=== PATIENT | female | born 2000 | race Caucasian/White ===

== ENCOUNTER 2022-01-20 16:36 | Emergency (ER) | payer MEDICAID ==
[2022-01-20 17:07] LABS: MUDS CUTOFF CONCENTRATIONS CUTOFF CONC BELOW:
[2022-01-20 17:14] LABS: BILIRUBIN,URINE NEGATIVE (NEGATIVE); GLUCOSE, URINE (UA) NEGATIVE (NEGATIVE); KETONES,URINE (UA) NEGATIVE (NEGATIVE); LEUKOCYTE ESTERASE, URINE NEGATIVE (NEGATIVE); NITRITE,URINE NEGATIVE (NEGATIVE); OCCULT BLOOD,URINE MODERATE (NEGATIVE); PROTEIN,URINE NEGATIVE (NEGATIVE); UROBILINOGEN,URINE 0.2 (NORMAL) E.U./dL (NORMAL)
[2022-01-20 17:20] LABS: BASOPHILS % (AUTO) 0.4 %; EOSINOPHILS # (AUTO) 0.1 10^3/uL (0.0-0.7); EOSINOPHILS % (AUTO) 1.1 %; HGB - HEMOGLOBIN 13.5 g/dL (12.0-16.0); LYMPHOCYTES # (AUTO) 3.3 10^3/uL (1.5-3.5); LYMPHOCYTES % (AUTO) 44.1 %; MEAN CORPUSCULAR HEMOGLOBIN 29.3 pg (27.0-31.0); MEAN CORPUSCULAR HGB CONC 33.8 g/dL (32.0-36.0); MEAN CORPUSCULAR VOLUME 86.8 fL (81.0-99.0); MEAN PLATELET VOLUME 11.8 fL (7.9-10.8); MONOCYTES # (AUTO) 0.8 10^3/uL (0.0-1.0); MONOCYTES % (AUTO) 10.5 %; NEUTROPHILS # (AUTO) 3.3 10^3/uL (1.5-6.6); NEUTROPHILS % (AUTO) 43.8 %; PLT - PLATELET COUNT 286 10^3/uL (130-450); RED BLOOD COUNT 4.61 10^6/uL (4.20-5.40); RED CELL DISTRIBUTION WIDTH 12.4 % (12.0-15.0); WHITE BLOOD COUNT 7.5 x10^3/uL (4.8-10.8)
[2022-01-20 17:20] LABS: CLARITY,URINE CLEAR (CLEAR); HCG UR QUAL NEGATIVE
[2022-01-20 17:26] LABS: AMPHETAMINE SCREEN,URINE NEGATIVE (NEGATIVE); BACTERIA,URINE Rare /HPF (None Seen); BARBITURATE SCREEN,UR NEGATIVE (NEGATIVE); BENZODIAZEPINES SCREEN, URINE NEGATIVE (NEGATIVE); COCAINE SCREEN URINE NEGATIVE (NEGATIVE); METHADONE SCREEN, URINE NEGATIVE (NEGATIVE); METHAMPHETAMINES SCREEN, URINE NEGATIVE (NEGATIVE); OPIATE SCREEN, URINE NEGATIVE (NEGATIVE); OXYCODONE SCREEN, URINE NEGATIVE (NEGATIVE); PROPOXYPHENE SCREEN, URINE NEGATIVE (NEGATIVE); RBC,URINE 0-5 /HPF (0-5); SQUAMOUS EPITHELIAL CELL,UR FEW Squamous (<= Few); THC CANNABINOID SCREEN, URINE NEGATIVE (NEGATIVE); TRICYCLIC ANTIDEPRESSANT,URINE NEGATIVE (NEGATIVE); WBC,URINE 0-3 /HPF (0-5)
[2022-01-20 17:30] LABS: ALBUMIN 4.5 g/dL (3.2-5.5); ALBUMIN/GLOBULIN RATIO 1.3 (1.0-2.2); BILIRUBIN,TOTAL 0.6 mg/dL (0.2-1.0); CALCIUM 10.1 mg/dL (8.5-10.3); CREATININE 0.6 mg/dL (0.4-1.0); POTASSIUM 3.7 mmol/L (3.5-5.0)
[2022-01-20] MEDS ORDERED: SODIUM CHLORIDE 0.9% 1,000 ML IV STA (18:47)
--- NOTE | 2022-01-20 18:49 | ED Physician Documentation ---
History of Present Illness - Stated complaint Stated Complaint: ABD PX,NAUSEA - Chief complaint Chief Complaint: Abd Pain - History obtained from History obtained from: Patient - History of Present Illness Timing: How many days ago (4-5) Pain level max: 3 Pain level now: 1 - Additonal information Additional information: Patient is a 21-year-old female who presents to the emergency department stating that for the past 4 to 5 days she has had intermittent abdominal pain. Mainly epigastric. Nothing seems to make it better. She states worse with eating and drinking. Does have a history of IBS. She states she used to be on Hyoscyamine for this. She states that she feels lightheaded when she stands up, like she is going to pass out. She has been on a crash diet for the past 2 months. Eating less than 600 samson/day. Review of Systems Ten Systems: 10 systems reviewed and negative Constitutional: denies: Fever, Chills Nose: denies: Rhinorrhea / runny nose, Congestion Respiratory: denies: Cough GI: denies: Vomiting, Diarrhea Skin: denies: Rash Musculoskeletal: denies: Neck pain, Back pain Neurologic: denies: Headache PD PAST MEDICAL HISTORY - Past Medical History Past Medical History: Yes Cardiovascular: None Respiratory: None Neuro: None Endocrine/Autoimmune: None GI: Other MUD MIXER: None : None HEENT: None Psych: None Musculoskeletal: None Derm: None Other Past Medical History: IBS. "non- alcoholic fatty liver disease" - Past Surgical History Past Surgical History: No - Present Medications Home Medications: Ambulatory Orders Medication Instructions Recorded Confirmed No Known Home Medications 01/20/22 01/20/22 - Allergies Allergies/Adverse Reactions: Allergies Allergy/AdvReac Type Severity Reaction Status Date / Time hydrocodone Allergy Anaphylaxis Verified 01/20/22 16:47 ibuprofen AdvReac Unknown Verified 01/20/22 16:47 - Social History Does the pt smoke?: No Smoking Status: Never smoker - Immunizations Immunizations are current?: Yes PD ED PE NORMAL - Vitals Vital signs reviewed: Yes - General General: Alert and oriented X 3, No acute distress, Well developed/nourished - HEENT HEENT: PERRL, Other (dry lips) - Neck Neck: Supple, no meningeal sign - Cardiac Cardiac: RRR, Strong equal pulses - Respiratory Respiratory: No respiratory distress, Clear bilaterally - Abdomen Abdomen: Soft, Non tender, Non distended - Derm Derm: Warm and dry, No rash - Extremities Extremities: No edema, No calf tenderness / cord - Neuro Neuro: Alert and oriented X 3 Results - Vitals Vitals: Vital Signs - 24 hr 01/20/22 01/20/22 01/20/22 16:43 18:38 19:25 Temperature 36.6 C 36.9 C 36.8 C Heart Rate 69 46 L 67 Respiratory 17 16 16 Rate Blood Pressure 128/77 108/79 117/76 O2 Saturation 99 100 100 Oxygen O2 Source Room air - Labs Labs: Laboratory Tests 01/20/22 01/20/22 01/20/22 17:05 17:10 17:10 WBC 7.5 RBC 4.61 Hgb 13.5 Hct 40.0 MCV 86.8 MCH 29.3 MCHC 33.8 RDW 12.4 Plt Count 286 MPV 11.8 H Neut # (Auto) 3.3 Lymph # (Auto) 3.3 [place] # (Auto) 0.8 Eos # (Auto) 0.1 Baso # (Auto) 0.0 Absolute Nucleated RBC 0.00 Nucleated RBC % 0.0 Sodium 139 Potassium 3.7 Chloride 103 Carbon Dioxide 24 Anion Gap 12.0 BUN 9 Creatinine 0.6 Estimated GFR (MDRD) 129 Glucose 73 Calcium 10.1 Total Bilirubin 0.6 AST 41 ALT 57 Alkaline Phosphatase 36 L Total Protein 8.0 Albumin 4.5 Globulin 3.5 Albumin/Globulin Ratio 1.3 Lipase 35 Urine Color YELLOW Urine Clarity CLEAR Urine pH 6.0 Ur Specific [place] <=1.005 Urine Protein NEGATIVE Urine Glucose (UA) NEGATIVE Urine Ketones NEGATIVE Urine Occult Blood MODERATE H Urine Nitrite NEGATIVE Urine Bilirubin NEGATIVE Urine Urobilinogen 0.2 (NORMAL) Ur Leukocyte Esterase NEGATIVE Urine RBC 0-5 Urine WBC 0-3 Ur Squamous Epith Cells FEW Squamous Urine Bacteria Rare Ur Microscopic Review INDICATED Urine Culture Comments NOT INDICATED Urine HCG, Qual NEGATIVE Urine Opiates Screen NEGATIVE Ur Oxycodone Screen NEGATIVE Urine Methadone Screen NEGATIVE Ur Propoxyphene Screen NEGATIVE Ur Barbiturates Screen NEGATIVE Ur Tricyclics Screen NEGATIVE Ur Phencyclidine Scrn NEGATIVE Ur Amphetamine Screen NEGATIVE U Methamphetamines Scrn NEGATIVE U Benzodiazepines Scrn NEGATIVE Urine Cocaine Screen NEGATIVE U Cannabinoids Screen NEGATIVE PD MEDICAL DECISION MAKING - ED course Complexity details: reviewed results, re-evaluated patient, considered differential, d/w patient ED course: No significant lab abnormalities. Feels better after IV fluids. Likely that she is having some abdominal pain from her IBS as well. Recommend that she follow-up closely with a primary care provider for further care. Also recommend she increase her caloric intake to at least 1200 samson/day. Recommend that she follow with a internal sales for her weight loss goals. Patient counseled regarding signs and symptoms for which I believe and urgent re-evaluation would be necessary. Patient with good understanding of and agreement to plan and is comfortable going home at this time This document was made in part using voice recognition software. While efforts are made to proofread this document, sound alike and grammatical errors may occur. Departure - Departure Disposition: 01 Home, Self Care Clinical Impression: Dehydration Condition: Good Instructions: ED Dehydration Follow-Up: Your,doctor in 1 week [Other] Primary/Walk In [place] [Provider Group] Walk In [facility] [Provider Group] Comments: Please make sure you are eating at least 1200 samson/day. You should also have refeeding periods during your weight loss. Make sure you are drinking plenty of water and vitamins as well as electrolytes too. Return if you worsen. Your blood work does not show any acute abnormalities today Discharge Date/Time: 01/20/22 19:48
[2022-01-20 19:29] VITALS: BP 117/76
== END 2022-01-20 19:48 | disposition home or self-care (01) ==
LOC: ED 16:36
DX: E86.0 Dehydration (principal)
CPT/HCPCS: 36415; 80053; 80306; 81001; 81003; 81025; 83690; 85025; 87086; 99282; 99283

== ENCOUNTER 2022-08-24 17:48 | Emergency (ER) | payer MEDICAID ==
[2022-08-24 18:09] VITALS: BP 119/64
[2022-08-24] MEDS ORDERED: ONDANSETRON ODT 4 MG TABLET TL STA (18:11)
--- NOTE | 2022-08-24 18:11 | ED Physician Documentation ---
PD HPI HEENT - Stated complaint Stated Complaint: SORE THROAT,NAUSEA - Chief complaint Chief Complaint: Heent - History obtained from History obtained from: Patient - Additional information Additional information: This is an otherwise healthy 21-year-old who is been sick for about 3 days with mild sore throat, runny nose, chills, and nausea without vomiting. There is no fever. She is been exposed to her brothers who are sick with similar illness, they tested negative for COVID. She has not tested for COVID. She needs something for the nausea. No chance of . 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 : None HEENT: None Psych: None Musculoskeletal: None Derm: None - Past Surgical History Past Surgical History: No - Present Medications Home Medications: Ambulatory Orders Medication Instructions Recorded Confirmed Ondansetron Odt [Zofran] 4 mg TL Q6H PRN #10 tablet 08/24/22 - Allergies Allergies/Adverse Reactions: Allergies Allergy/AdvReac Type Severity Reaction Status Date / Time hydrocodone Allergy Anaphylaxis Verified 08/24/22 17:57 ibuprofen AdvReac Unknown Verified 08/24/22 17:57 - Social History Does the pt smoke?: No Smoking Status: Never smoker - Immunizations Immunizations are current?: Yes PD ED PE NORMAL - Vitals Vital signs reviewed: Yes - General General: Alert and oriented X 3, No acute distress - HEENT HEENT: Other (Mildly red tonsillar pillars, no tonsillar swelling or exudates, no cervical adenopathy.) - Neck Neck: Supple, no meningeal sign, No bony TTP - Cardiac Cardiac: RRR, No murmur - Respiratory Respiratory: No respiratory distress, Clear bilaterally - Abdomen Abdomen: Non tender - Neuro Neuro: Alert and oriented X 3, Normal speech - Psych Psych: Normal mood, Normal affect Results - Vitals Vitals: Vital Signs - 24 hr 08/24/22 17:54 Temperature 37.2 C Heart Rate 65 Respiratory 16 Rate Blood Pressure 119/64 O2 Saturation 99 Oxygen O2 Source Room air PD Medical Decision Making - ED course ED course: 21-year-old with viral URI. Will check for COVID. Otherwise she needs symptomatic relief from her nausea. Departure - Departure Disposition: 01 Home, Self Care Clinical Impression: Viral URI Condition: Good Record reviewed to determine appropriate education?: Yes Instructions: ED Viral Syndrome Prescriptions: Ondansetron Odt [Zofran] 4 mg TL Q6H PRN #10 tablet PRN Reason: Nausea / Vomiting Comments: You have a Covid test pending. You need to self quarantine until the result is done and negative. Do not leave your house. Do not get near anybody. The results should be done in 48 to 72 hours. We will call with a positive result, the fastest way to get a negative result for confirmation though is to go to the hospital website at [email or web address], click on the my [email or web address] tab and sign up for the patient portal. Forms: Activity restrictions
== END 2022-08-24 18:17 | disposition home or self-care (01) ==
LOC: ED 17:48
DX: J06.9 Acute upper respiratory infection, unspecified (principal); Z20.822 Contact with and (suspected) exposure to COVID-19
CPT/HCPCS: 87635; 99283; Q0162

== ENCOUNTER 2022-10-03 19:22 | Emergency (ER) | payer MEDICAID ==
[2022-10-03] MEDS ORDERED: ONDANSETRON 4 MG/2 ML VIAL IVP STA (19:36)
[2022-10-03] MEDS ORDERED: KETOROLAC 30 MG/ML VIAL IVP STA (19:36)
[2022-10-03] MEDS ORDERED: SODIUM CHLORIDE 0.9% 1,000 ML IV STA (19:37)
--- NOTE | 2022-10-03 19:39 | ED Physician Documentation ---
PD HPI ABD PAIN - Stated complaint Stated Complaint: ABD PAIN - Chief complaint Chief Complaint: Abd Pain - History obtained from History obtained from: Patient - Additional information Additional information: Pt is a 22yo F presenting with 2 days of LLQ and L flank pain with dysuria. Denies h/o kidney stones. Denies fever, vaginal bleeding, discharge or concerns for Or sexually transmitted infection. Nothing makes the pain better. Pain is sharp. Review of Systems Constitutional: denies: Fever Cardiac: denies: Chest pain / pressure Respiratory: denies: Dyspnea GI: reports: Abdominal Pain, Nausea, Vomiting : reports: Dysuria Neurologic: denies: Headache PD PAST MEDICAL HISTORY - Past Medical History Cardiovascular: None Respiratory: None Neuro: None Endocrine/Autoimmune: None GI: Other CHEMICAL MAKER: None : None HEENT: None Psych: None Musculoskeletal: None Derm: None - Past Surgical History Past Surgical History: No - Present Medications Home Medications: Ambulatory Orders Medication Instructions Recorded Confirmed Ondansetron Odt [Zofran] 4 mg TL Q6H PRN #10 tablet 08/24/22 Oxycodone HCl/Acetaminophen 1 each PO Q6H PRN #14 tablet 10/03/22 [Percocet 5-325 mg Tablet] cephALEXin [Keflex] 500 mg PO BID #14 cap 10/03/22 - Allergies Allergies/Adverse Reactions: Allergies Allergy/AdvReac Type Severity Reaction Status Date / Time hydrocodone Allergy Anaphylaxis Verified 10/03/22 19:26 ibuprofen AdvReac Unknown Verified 10/03/22 19:26 - Social History Does the pt smoke?: No Smoking Status: Never smoker - Immunizations Immunizations are current?: Yes PD ED PE NORMAL - General General: Alert and oriented X 3, No acute distress, Well developed/nourished - HEENT HEENT: Atraumatic - Neck Neck: Supple, no meningeal sign - Cardiac Cardiac: RRR, No murmur - Respiratory Respiratory: No respiratory distress, Clear bilaterally - Abdomen Abdomen: Normal bowel sounds, Soft, Non distended, Other (L sided abdominal TTP; no mass; no hernia) - Female Female : Mobile Therapist present (Matt, tech), Other (Normal external exam, moderate amount of white vaginal discharge, normal-appearing cervix, no CMT or significant adnexal tenderness) - Derm Derm: Warm and dry - Neuro Neuro: Normal speech Results - Vitals Vitals: Vital Signs - 24 hr 10/03/22 10/03/22 10/03/22 19:26 20:12 20:15 Temperature 36.5 C Heart Rate 75 68 66 Respiratory 18 14 16 Rate Blood Pressure 134/84 H 121/76 121/76 O2 Saturation 100 100 100 10/03/22 10/03/22 20:39 23:01 Temperature 37.1 C Heart Rate 57 L 67 Respiratory 16 20 Rate Blood Pressure 112/76 119/79 O2 Saturation 100 100 Oxygen O2 Source Room air - Labs Labs: Laboratory Tests 10/03/22 10/03/22 10/03/22 19:38 19:38 19:58 WBC 8.0 RBC 4.35 Hgb 12.8 Hct 38.7 MCV 89.0 MCH 29.4 MCHC 33.1 RDW 11.8 L Plt Count 264 MPV 11.1 H Neut # (Auto) 3.9 Lymph # (Auto) 3.2 [place] # (Auto) 0.8 Eos # (Auto) 0.1 Baso # (Auto) 0.0 Absolute Nucleated RBC 0.00 Nucleated RBC % 0.0 Sodium 139 Potassium 3.8 Chloride 104 Carbon Dioxide 30 Anion Gap 5.0 L BUN 13 Creatinine 0.4 Estimated GFR (MDRD) 203 Glucose 85 Calcium 9.2 Total Bilirubin 0.4 AST 19 ALT 16 Alkaline Phosphatase 33 L Total Protein 7.5 Albumin 4.1 Globulin 3.4 Albumin/Globulin Ratio 1.2 Lipase 35 Urine Color YELLOW Urine Clarity CLEAR Urine pH 7.5 Ur Specific [place] 1.020 Urine Protein NEGATIVE Urine Glucose (UA) NEGATIVE Urine Ketones NEGATIVE Urine Occult Blood MODERATE H Urine Nitrite NEGATIVE Urine Bilirubin NEGATIVE Urine Urobilinogen 0.2 (NORMAL) Ur Leukocyte Esterase TRACE H Urine RBC 11-25 H Urine WBC 4-5 Ur Squamous Epith Cells FEW Squamous Urine Bacteria Few Ur Microscopic Review INDICATED Urine Culture Comments INDICATED Urine HCG, Qual NEGATIVE PD Medical Decision Making - ED course Complexity details: reviewed results, re-evaluated patient, d/w patient, d/w family ED course: Patient is presenting for evaluation of dysuria along with left-sided abdominal pain. She does have mild tenderness noted on exam. Her vital signs appear stable. Labs reviewed including CBC, chemistry, urinalysis. Urine is concerning for infection. She is not . CT scan of the abdomen pelvis was obtained which I reviewed and is negative for a stone but does have the presence of a left-sided hemorrhagic ovarian cyst. A pelvic exam was also per formed. Patient does not have significant adnexal tenderness. No fullness noted. Exam does not suggest ovarian torsion. Ultrasound of the pelvis was obtained which is negative for ovarian torsion. She does have white vaginal discharge on exam which was sent for testing and is pending.She denies concerns for STI and there are no signs of a TOA on U/S. She did receive IV morphine for her pain here with improvement in her symptoms.She additionally was started on antibiotics for a UTI.Patient was counseled on treatment plan with pain medication and antibiotics for her UTI. She is not able to take NSAIDs And had not received improvement with using Tylenol at home so short course of narcotic pain medication was prescribed to her.Patient is counseled on need for close follow-up with PCP or gynecology.She is advised on concerning symptoms to return for. Departure - Departure Disposition: 01 Home, Self Care Clinical Impression: Cyst of ovary, UTI (urinary tract infection) Condition: Stable Instructions: ED Cyst Ovarian, ED UTI Cystitis Female Prescriptions: cephALEXin [Keflex] 500 mg PO BID #14 cap Oxycodone HCl/Acetaminophen [Percocet 5-325 mg Tablet] 1 each PO Q6H PRN #14 tablet PRN Reason: pain Comments: Your testing today shows that you have a urinary tract infection. You also have a cyst on your left ovary which is likely the cause of your pain.I am starting you on an antibiotic for your urine infection and will also prescribe a short amount of narcotic pain medication to help you with the pain regarding the cyst. I would recommend close follow-up with a PCP or residential designer Regarding your cyst. If your pain worsens in any way please return to the emergency department. I have also sent swabs from your vaginal discharge. If there are abnormal findings we will notify you. Your prescriptions were sent to [facility] in [place]. I am prescribing a short course of narcotic pain medication for you. These are potentially dangerous and addictive medications that should be used carefully. These medications may constipate you. Take an [id number] stool softener (docusate) twice daily with plenty of water while taking these medications. If you go 24 hours without a bowel movement, take [id number] miralax, per package instructions. Do not drink or drive while taking these medications. If you received narcotic or sedating medications while in the emergency department, do not drive for 24 hours. Store this medication in a safe, secure place and out of reach of children. It is a violation of federal law to give or sell this medication to another person or to use in a manner other than prescribed. The ED will not refill narcotic prescriptions, including prescriptions lost or stolen. To dispose of unwanted medications: 1. [facility] [address] [facility] in [place] has a medication drop box. They accept prescription medications (in pill form) Friday through Friday 9:00 a.m. to 5:00 p.m. 2. The [facility] [employer] accepts prescription medications (in pill form only) for disposal year round. Call for more information. 3. Contact the [facility] for the next [facility] sponsored prescription drug collection event. , [phone], or [phone]; Note that many narcotic pain relievers also contain Tylenol/acetaminophen. Please ensure that your total dose of acetaminophen from all sources does not exceed 3 g (3000 mg) per day. Return to the ER with any worsening symptoms. Discharge Date/Time: 10/03/22 23:06
--- OUTSIDE RECORDS SUMMARY | 2022-10-03 19:45 | EXTERNAL MEDICAL SUMMARY RPT | Continuity of Care Document ---
:2000 Author Organization [facility] Address [address] [place] [address] Phone Care Team Providers Name Role Phone Unavailable Unavailable Unavailable Tito Bonilla Pa-C Unavailable Unavailable Allergies and Intolerances date description facility type (no date) IBUPROFEN All (unknown) (no date) HYDROCODONE-ACETAMINOPHEN All (unk nown) Encounters No information. Functional Status No information. Immunizations No information. Medications date description facility 2022-09-23 00:00 No Known Medications All Problems date description facility 2022-09-23 00:00 Acute upper respiratory infections of u nspecified site All 2022-09-23 00:00 Upper respiratory infection All 2022-09-23 00:00 Acute upper respiratory infection, unsp ecified All Procedures date description facility 2022-09-23 00:00 Visit Code Hold All Results/Labs No information. Social History date description facility 2022-09-24 00:00 Unknown if ever smoked All Vital Signs date measurement value units 2022-09-23 00:00 BMI 25.84 kg/m2 2022-09-23 00:00 BP_diastolic 78 mmHg 2022-09-23 00:00 BP_systolic 120 mmHg 2022-09-23 00:00 heart_rate 55 /min 2022-09-23 00:00 height_metric 162.56 cm 2022-09-23 00:00 height_standard 64 in 2022-09-23 00:00 respiration_rate 16 /min 2022-09-23 00:00 temperature_metric 36.78 C 2022-09-23 00:00 temperature_standard 98.2 F 2022-09-23 00:00 weight_metric 68.04 kg 2022-09-23 00:00 weight_standard 150 lb
[2022-10-03] MEDS ORDERED: MORPHINE 2 MG/ML CARPUJECT IVP STA ×2 (20:00→21:48)
[2022-10-03 20:08] LABS: BASOPHILS % (AUTO) 0.4 %; EOSINOPHILS # (AUTO) 0.1 10^3/uL (0.0-0.7); EOSINOPHILS % (AUTO) 1.2 %; HCT - HEMATOCRIT 38.7 % (37.0-47.0); HGB - HEMOGLOBIN 12.8 g/dL (12.0-16.0); LYMPHOCYTES # (AUTO) 3.2 10^3/uL (1.5-3.5); LYMPHOCYTES % (AUTO) 39.6 %; MEAN CORPUSCULAR HEMOGLOBIN 29.4 pg (27.0-31.0); MEAN CORPUSCULAR HGB CONC 33.1 g/dL (32.0-36.0); MEAN PLATELET VOLUME 11.1 fL (7.9-10.8); MONOCYTES # (AUTO) 0.8 10^3/uL (0.0-1.0); MONOCYTES % (AUTO) 10.5 %; NEUTROPHILS # (AUTO) 3.9 10^3/uL (1.5-6.6); NEUTROPHILS % (AUTO) 48.2 %; PLT - PLATELET COUNT 264 10^3/uL (130-450); RED BLOOD COUNT 4.35 10^6/uL (4.20-5.40); RED CELL DISTRIBUTION WIDTH 11.8 % (12.0-15.0)
[2022-10-03 20:19] LABS: BILIRUBIN,URINE NEGATIVE (NEGATIVE); GLUCOSE, URINE (UA) NEGATIVE (NEGATIVE); KETONES,URINE (UA) NEGATIVE (NEGATIVE); LEUKOCYTE ESTERASE, URINE TRACE (NEGATIVE); NITRITE,URINE NEGATIVE (NEGATIVE); OCCULT BLOOD,URINE MODERATE (NEGATIVE); PH,URINE 7.5 PH (5.0-7.5); PROTEIN,URINE NEGATIVE (NEGATIVE); UROBILINOGEN,URINE 0.2 (NORMAL) E.U./dL (NORMAL)
[2022-10-03 20:20] LABS: ALBUMIN 4.1 g/dL (3.2-5.5); ALBUMIN/GLOBULIN RATIO 1.2 (1.0-2.2); BILIRUBIN,TOTAL 0.4 mg/dL (0.2-1.0); CALCIUM 9.2 mg/dL (8.5-10.3); CREATININE 0.4 mg/dL (0.4-1.0); POTASSIUM 3.8 mmol/L (3.5-5.0); TOTAL PROTEIN 7.5 g/dL (6.7-8.2)
[2022-10-03 20:22] LABS: CLARITY,URINE CLEAR (CLEAR); HCG UR QUAL NEGATIVE
[2022-10-03 20:27] LABS: BACTERIA,URINE Few /HPF (None Seen); SQUAMOUS EPITHELIAL CELL,UR FEW Squamous (<= Few)
--- NOTE | 2022-10-03 21:41 | CT Report ---
PROCEDURE: ABDOMEN/PELVIS WO INDICATIONS: L flank/LLQ pain TECHNIQUE: Noncontrast 5 mm thick sections acquired from the diaphragms to the symphysis. 5 mm coronal and sagi ttal reformats were then performed. For radiation dose reduction, the following was used: automated exposure control, adjustment of mA and/or kV according to patient size. COMPARISON: None. FINDINGS: Image quality: Excellent. Lung bases: Unremarkable. Heart: Heart is normal in size. ABDOMEN: Liver: No mass lesion. Gallbladder: Within normal limits without calcified gallstones. Biliary ducts: No biliary ductal dilatation. Pancreas: Unremarkable. Spleen: Normal in size. Adrenal Glands: No adrenal nodules. Kidneys and Ureters: No hydronephrosis. No renal stones. Stomach and Bowel: Stomach, small bowel loops, and colon are normal in caliber and wall thickness. A ppendix is normal. There are a few colonic diverticula without acute diverticulitis. Peritoneum:A small amount of pelvic free fluid appears within physiologic limits. No free air. Ventral Wall: No hernia. Abdominal Nodes: No retroperitoneal or mesenteric adenopathy by size criteria. Vessels: Aorta and inferior vena cava are normal in size. PELVIS: Pelvic Organs:There is a left adnexal cyst measuring up to 6.1 cm with curvilinear internal areas of hyperdensity suggestive of blood product. The findings are suggestive of a hemorrhagic cyst. Bladder: Unremarkable. Pelvic Nodes: No enlarged lymph nodes. Miscellaneous: No inguinal hernias. Bones: Visualized osseous structures demonstrate no suspicious lesions. IMPRESSION: 1. No nephrolithiasis or obstructive uropathy. 2. No evidence of diverticulitis. 3. Left adnexal cyst with internal curvilinear areas of hyperdensity suggestive of a hemorrhagic cyst . Further evaluation may be obtained with a pelvic ultrasound if clinically indicated. Reviewed by: Lex Whitney MD on 10/03/2022 9:40 PM PDT Approved by: Lex Whitney MD on 10/03/2022 9:40 PM PDT Station ID: [id number]
[2022-10-03] MEDS ORDERED: cefTRIAXone 1 GM VIAL IVP STA (21:45)
[2022-10-03] MEDS ORDERED: oxyCODONE/ACET 5/325 Prepack 4 PO STA (22:46)
[2022-10-03 23:06] VITALS: BP 119/79
--- NOTE | 2022-10-04 00:06 | Ultrasound Report ---
PROCEDURE: Pelvic w/Doppler Complete INDICATIONS: L adnexal pain TECHNIQUE: Real-time transabdominal scanning was performed of the pelvic organs, with image documentation. Dopp ler interrogation was performed of the ovaries bilaterally. COMPARISON: CT abdomen pelvis 10/03/2022. FINDINGS: Uterus: Uterus is anteverted and measures 8.4 x 2.9 x 4.2 cm. The endometrium measures up to 1.0 cm in thickness. Ovaries: The right ovary measures 3.2 x 2.4 x 3.5 cm with a volume of 13.8 mL. No right adnexal wagner s. The left ovary measures 5.5 x 5.4 x 4.2 cm with a volume of 66.5 mL. There is a thick-walled cyst in the left ovary measuring up to 4.5 x 3.9 x 4.6 cm with internal septations. No associated internal vascularity on color Doppler interrogation. There is patent arterial and venous flow demonstrated within the ovaries. Other: There is a small amount of pelvic free fluid which appears within physiologic limits.. IMPRESSION: 1. No evidence of ovarian torsion. 2. Complex left ovarian cyst likely represents a hemorrhagic cyst. Recommend follow-up ultrasound in 6 weeks to demonstrate resolution if clinically indicated. Reviewed by: Lex Whitney MD on 10/04/2022 12:05 AM PDT Approved by: Lex Whitney MD on 10/04/2022 12:05 AM PDT Station ID: [id number]
[2022-10-04 02:50] LABS: BACTERIAL VAGINOSIS DNA POSITIVE (NEGATIVE); CANDIDA KRUSEI DNA UNRESOLVED (NEGATIVE)
[2022-10-04 02:51] LABS: CANDIDA GLABRATA DNA UNRESOLVED (NEGATIVE); CANDIDA GROUP DNA UNRESOLVED (NEGATIVE); TRICHOMONAS VAGINALIS DNA UNRESOLVED (NEGATIVE)
[2022-10-04 05:15] LABS: CHLAMYDIA TRACHOMATIS DNA NEGATIVE (NEGATIVE); NEISSERIA GONORRHOEAE DNA NEGATIVE (NEGATIVE); TRICHOMONAS VAGINALIS DNA NEGATIVE (NEGATIVE)
--- NOTE | 2022-10-04 18:09 | ED Physician Documentation ---
ED Addendum - Addendum Addendum: 10/04/22 18:08 The nursing staff took a call from the patient that the Zofran prescription had not shown up at the [facility] pharmacy. They did not have the prescriptions for the pain medicine and antibiotic. The patient is feeling nauseated and they are requesting that. I did enter second prescription for the Zofran and transmitted it to [facility] pharmacy. Unclear why the first 1 did not transmit.
== END 2022-10-03 23:06 | disposition home or self-care (01) ==
LOC: ED 19:22
DX: N83.202 Unspecified ovarian cyst, left side (principal); N39.0 Urinary tract infection, site not specified
CPT/HCPCS: 36415; 80053; 81001; 81003; 81025; 81514; 83690; 85025; 87086; 87491; 87591; 87661; 93975; 96374; 96375; 96376; 99284

== ENCOUNTER 2022-11-30 12:43 | Emergency (ER) | payer MEDICAID ==
[2022-11-30 13:15] VITALS: BP 112/68
--- OUTSIDE RECORDS SUMMARY | 2022-11-30 13:30 | EXTERNAL MEDICAL SUMMARY RPT | Continuity of Care Document ---
Author Name Unknown Address [address] [place] [address] Phone Organization [facility] Address [address] [place] [address] Phone Care Team Providers Care Cuff Slitter Name Role Phone Unavailable Unavailable Unavailable Chad Browning, Tito Unavailable Unavailabl e Allergies and Intolerances date description facility type (no date) IBUPROFEN All (unknown) (no date) HYDROCODONE-ACETAMINOPHEN All (u nknown) Medications date description facility 2022-09-23 00:00 No Known Medications All Problems date description facility 2022-09-23 00:00 Acute upper respiratory infecti ons of unspecified site All 2022-09-23 00:00 Upper respiratory infection All 2022-09-23 00:00 Acute upper respiratory infecti on, unspecified All Procedures date description facility 2022-09-23 00:00 Visit Code Hold All Social History date description facility 2022-09-24 00:00 Unknown if ever smoked All 2022-10-02 00:00 Unknown if ever smoked All Vital [...]
--- NOTE | 2022-11-30 13:54 | ED Physician Documentation ---
History of Present Illness - Stated complaint Stated Complaint: LUMP RT ARMPIT/KNEE PX LT - Chief complaint Chief Complaint: General - History obtained from History obtained from: Patient - Additonal information Additional information: 22-year-old woman with history of bleeding disorder but otherwise healthy presents with multiple complaints. First is a week of clicking and grinding of the left knee especially when she walks up or down stairs. Second is a 4-day history of painful lump in the right armpit. Third is requesting STD testing without symptoms. 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 HEENT: None Psych: None Musculoskeletal: None Derm: None - Past Surgical History Past Surgical History: No - Present Medications Home Medications: Ambulatory Orders Medication Instructions Recorded Confirmed cephALEXin [Keflex] 500 mg PO Q6H #28 cap 11/30/22 - Allergies Allergies/Adverse Reactions: Allergies Allergy/AdvReac Type Severity Reaction Status Date / Time hydrocodone Allergy Anaphylaxis Verified 10/03/22 19:26 ibuprofen AdvReac Unknown Verified 10/03/22 19:26 - Social History Does the pt smoke?: No Smoking Status: Never smoker - Immunizations Immunizations are current?: Yes - POLST Patient has POLST: No PD ED PE NORMAL - Vitals Vital signs reviewed: Yes - General General: Alert and oriented X 3, No acute distress - Derm Derm: Other (In the right axilla very is a very small less than 1 cm deeper abscess) - Extremities Extremities: Other (Left knee is nontender, no effusion. No warmth or redness. Full range of motion but there is crepitance of the patella with flexion and extension.) - Neuro Neuro: Alert and oriented X 3, Normal speech - Psych Psych: Normal mood, Normal affect Results - Vitals Vitals: Vital Signs - 24 hr 11/30/22 13:08 Temperature 36.4 C L Heart Rate 67 Respiratory 18 Rate Blood Pressure 112/68 O2 Saturation 98 Oxygen O2 Source Room air Procedures - Abscess I&D (location) r AXILLA Preparation: Lidocaine 1%, With epi Incision: Needle aspiration, Purulent drainage Other: Pt tolerated well, Antibiotic prescribed PD Medical Decision Making - ED course ED course: As far as the knee, she has patellofemoral syndrome and she was given exercises to do for that. STD testing was done at her request. She understands that we do not have a robust follow-up system for this and is not emergency but she can get results from the patient portal. She requested a call back at [phone] with any positive results. Departure - Departure Disposition: Home, Self Care Clinical Impression: Patellofemoral syndrome of left knee, Concern about STD in female without diagnosis, Abscess of right axilla Condition: Good Record reviewed to determine appropriate education?: Yes Instructions: Patellofemoral Syndrome, ED Chlamydia GC Poss Culture Pend Prescriptions: cephALEXin [Keflex] 500 mg PO Q6H #28 cap Comments: As discussed, we are testing today for gonorrhea, chlamydia, syphilis and HIV. Please log into the patient portal in a few days to check results. go to the hospital website at [email or web address], click on the my [facility] tab and sign up for the patient portal. Call your doctor to arrange a follow-up appointment, make the next available appointment. In the interim, return anytime if worse or if new symptoms develop.
[2022-11-30 14:48] LABS: HIV RAPID SCREEN NEGATIVE (NEGATIVE)
[2022-11-30 17:54] LABS: CHLAMYDIA TRACHOMATIS DNA NEGATIVE (NEGATIVE)
[2022-11-30 17:55] LABS: NEISSERIA GONORRHOEAE DNA NEGATIVE (NEGATIVE); TRICHOMONAS VAGINALIS DNA NEGATIVE (NEGATIVE)
[2022-12-04 00:08] LABS: RPR Non Reactive (Non Reactive)
== END 2022-11-30 14:51 | disposition home or self-care (01) ==
LOC: ED 12:43
DX: L02.413 Cutaneous abscess of right upper limb (principal); M22.2X2 Patellofemoral disorders, left knee; Z20.2 Contact with and (suspected) exposure to infections with a predominantly sexual mode of transmission
CPT/HCPCS: 10160; 86592; 86703; 87491; 87591; 87661; 99283

== ENCOUNTER 2022-12-06 10:57 | Emergency (ER) | payer MEDICAID ==
--- NOTE | 2022-12-06 11:33 | ED Physician Documentation ---
History of Present Illness - Stated complaint Stated Complaint: CHEST PX,SOA - Chief complaint Chief Complaint: Cardiac - Additonal information Additional information: 22-year-old female presents emergency department for evaluation of chest pain that woke her up from sleep. She describes it as substernal worse when taking a deep breath. Pain radiates to her back. No fevers. No cough. Non-smoker. Denies vaping. No recent travel. No unilateral leg swelling. No history of hormone use. No personal history of DVT or cancer. Patient states that her brother has had bilateral pneumothorax these in the past. Patient personally denies any falls or trauma. She takes no prescribed medications right now with the exception of an oral antibiotic which was prescribed for an underarm cellulitis/boil Review of Systems Constitutional: reports: Reviewed and negative Cardiac: reports: Chest pain / pressure. denies: Pedal edema, Calf pain Respiratory: reports: Dyspnea. 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 : None HEENT: None Psych: None Musculoskeletal: None Derm: None - Past Surgical History Past Surgical History: No - Present Medications Home Medications: Ambulatory Orders Medication Instructions Recorded Confirmed cephALEXin [Keflex] 500 mg PO Q6H #28 cap 11/30/22 Oxycodone HCl/Acetaminophen 1 each PO DAILY PRN #4 tablet 12/06/22 [Oxycodone-Acetaminophn 7.5-325] - Allergies Allergies/Adverse Reactions: Allergies Allergy/AdvReac Type Severity Reaction Status Date / Time hydrocodone Allergy Anaphylaxis Verified 12/06/22 11:04 ibuprofen AdvReac Unknown Verified 12/06/22 11:04 - Social History Does the pt smoke?: No Smoking Status: Never smoker - Immunizations Immunizations are current?: Yes - POLST Patient has POLST: No PD ED PE NORMAL - General General: Alert and oriented X 3, Well developed/nourished. No: No acute distress (Appears uncomfortable and in pain) - HEENT HEENT: Atraumatic, Moist mucous membranes - Neck Neck: Supple, no meningeal sign, No adenopathy - Cardiac Cardiac: RRR, No murmur - Respiratory Respiratory: No respiratory distress, Clear bilaterally (Full equal breath sounds in all lung trammell) - Abdomen Abdomen: Normal bowel sounds, Soft - Back Back: No CVA TTP - Derm Derm: Warm and dry - Neuro Neuro: Alert and oriented X 3 Eye Opening: Spontaneous Motor: Obeys Commands Verbal: Oriented GCS Score: 15 Results - Vitals Vitals: Vital Signs - 24 hr 12/06/22 12/06/22 12/06/22 11:00 11:29 12:17 Temperature 36.2 C L Heart Rate 77 70 61 Respiratory 16 19 14 Rate Blood Pressure 130/86 H 139/97 H O2 Saturation 100 100 98 Oxygen O2 Source Room air - EKG (time done) 1110 EKG releavant findings:: EKG personally interpreted by author of this note. Relevant findings are: Rate: Rate (enter#) (63) Rhythm: NSR Stambaugh: Normal Intervals: No: Normal TN (short TN inteval) QRS: Normal Ischemia: Normal ST segments Compare to prior EKG: Old EKG unavailable Computer interpretation: Agree with computer - Labs Labs: Laboratory Tests 12/06/22 12/06/22 12/06/22 11:19 11:19 11:19 WBC 7.6 RBC 4.41 Hgb 13.0 Hct 38.5 MCV 87.3 MCH 29.5 MCHC 33.8 RDW 11.6 L Plt Count 300 MPV 10.7 Neut # (Auto) 4.0 Lymph # (Auto) 2.7 Coos # (Auto) 0.8 Eos # (Auto) 0.1 Baso # (Auto) 0.0 Absolute Nucleated RBC 0.00 Nucleated RBC % 0.0 D-Dimer 210.4 Sodium 137 Potassium 4.0 Chloride 98 L Carbon Dioxide 27 Anion Gap 12.0 BUN 15 Creatinine 0.6 Estimated GFR (MDRD) 127 Glucose 87 Calcium 9.3 Total Bilirubin 0.5 AST 24 ALT 19 Alkaline Phosphatase 35 L Troponin I High Sens Total Protein 7.8 Albumin 4.0 Globulin 3.8 Albumin/Globulin Ratio 1.1 Lipase 35 Serum HCG, Qual 12/06/22 12/06/22 11:19 11:19 WBC RBC Hgb Hct MCV MCH MCHC RDW Plt Count MPV Neut # (Auto) Lymph # (Auto) Coos # (Auto) Eos # (Auto) Baso # (Auto) Absolute Nucleated RBC Nucleated RBC % D-Dimer Sodium Potassium Chloride Carbon Dioxide Anion Gap BUN Creatinine Estimated GFR (MDRD) Glucose Calcium Total Bilirubin AST ALT Alkaline Phosphatase Troponin I High Sens 2.7 Total Protein Albumin Globulin Albumin/Globulin Ratio Lipase Serum HCG, Qual NEGATIVE - Rads (name of study) cxr Relevant Findings:: Final report received (no acute cadiopulmonary process) PD Medical Decision Making - ED course Complexity details: reviewed results, re-evaluated patient, considered differential, d/w patient ED course: 22-year-old female presents emergency department for evaluation of pleuritic chest pain that woke her up from sleep this morning. Hurts with each deep breath and radiates to her back. No history of similar. No cough, no fevers. No hemoptysis. She is PERC negative. She does have a family history in her brother of spontaneous bilateral pneumothorax. The patient does report to me that she has an allergy to ibuprofen because she has a clotting disorder though she is unable to tell me what her clotting disorder is. Here in the emergency department on exam she is alert and well-appearing though anxious. Room air saturations 100%. Heart rate on the monitor was in the 70s and sinus rhythm. No tachycardia or hypotension noted. Cardiopulmonary auscultation was unremarkable. A chest x-ray as interpreted by both the radiologist and myself shows no acute cardiopulmonary findings. Specifically no evidence of pneumonia, pneumothorax or pleural effusions. Did obtain a CBC, electrolytes as well as a D-dimer and high-sensitivity troponin. These were all essentially negative. Her EKG was nonischemic and again normal sinus rhythm. Here in the emergency department she was initially administered 4 mg of morphine which she felt only modestly improved her pain. I discussed with the patient at the bedside clinically there was no suspicion for ACS, PE, pneumonia, pleural effusion, pneumothorax or any other acute worrisome clinical findings. I discussed with her my suspicion that I felt she likely had pleurisy. We discussed that this is typically self-limiting and benign in nature. I did recommend Tylenol for discomfort. Because of what she describes as the severity of the pain she will be prescribed a limited amount of oxycodone. She is in close encourage close follow-up with her primary care provider. The usual emergent return precautions worsening symptoms were discussed. I am prescribing a short course of short-acting opioid pain medication for this patient. I have reviewed the patients SUPERINTENDENT TRANSMISSION and no concerning findings were noted. I have discussed that the opioids are for short term therapy only, and will not be refilled from the ED. Departure - Departure Disposition: 01 Home, Self Care Clinical Impression: Pleuritic chest pain Condition: Stable Record reviewed to determine appropriate education?: Yes Instructions: ED Chest Pain Pleurisy Prescriptions: Oxycodone HCl/Acetaminophen [Oxycodone-Acetaminophn 7.5-325] 1 each PO DAILY PRN #4 tablet PRN Reason: Pain >8 Comments: Shireen pisano are seen today in the emergency department because you woke up with chest pain this morning that hurts every time he take a deep breath. As discussed at the bedside your labs including a CBC, electrolytes, troponin and D-dimer were all essentially normal. Your EKG was also normal. Your chest x- ray did not show signs of a pneumothorax, pneumonia or pleural effusion. As discussed I suspect that you have a condition called pleurisy which is an inflammation of the lining of the lungs. This is not typically evident on labs or x-ray imaging. However in most cases this is a benign self-limiting diagnosis. Pain usually typically gets better with or without treatment over the course of several days. I do recommend that you take Tylenol for discomfort 500 mg every 4-6 hours. I have sent a limited prescription of 4 tablets of oxycodone/Percocet to the [facility] in [place]. I encourage you to follow closely with your primary care doctor. Return to the ER if you develop a fever, have bloody sputum, any fainting episodes or severe shortness of air. I am prescribing a short course of narcotic pain medication for you. These are potentially dangerous and addictive medications that should be used carefully. These medications may constipate you. Take an fufs-xcy-zwsjdjy stool softener (docusate) twice daily with plenty of water while taking these medications. If you go 24 hours without a bowel movement, take [id number] miralax, per package instructions. Do not drink or drive while taking these medications. If you received narcotic or sedating medications while in the emergency department, do not drive for 24 hours. Store this medication in a safe, secure place and out of reach of children. It is a violation of federal law to give or sell this medication to another person or to use in a manner other than prescribed. The ED will not refill narcotic prescriptions, including prescriptions lost or stolen. To dispose of unwanted medications: 1. [facility] at [address] in [place] has a medication drop box. They accept prescription medications (in pill form) Friday through Friday 9:00 a.m. to 5:00 p.m. 2. The [facility] accepts prescription medications (in pill form only) for disposal year round. Call for more information. 3. Contact the [facility] for the next [facility] sponsored prescription drug collection event. , [phone], or x7310; Note that many narcotic pain relievers also contain Tylenol/acetaminophen. Please ensure that your total dose of acetaminophen from all sources does not exceed 3 g (3000 mg) per day.
[2022-12-06] MEDS ORDERED: MORPHINE 2 MG/ML CARPUJECT IVP STA (11:35)
[2022-12-06 11:42] LABS: BASOPHILS % (AUTO) 0.4 %; EOSINOPHILS # (AUTO) 0.1 10^3/uL (0.0-0.7); EOSINOPHILS % (AUTO) 1.2 %; HCT - HEMATOCRIT 38.5 % (37.0-47.0); LYMPHOCYTES # (AUTO) 2.7 10^3/uL (1.5-3.5); LYMPHOCYTES % (AUTO) 35.4 %; MEAN CORPUSCULAR HEMOGLOBIN 29.5 pg (27.0-31.0); MEAN CORPUSCULAR HGB CONC 33.8 g/dL (32.0-36.0); MEAN CORPUSCULAR VOLUME 87.3 fL (81.0-99.0); MEAN PLATELET VOLUME 10.7 fL (7.9-10.8); MONOCYTES # (AUTO) 0.8 10^3/uL (0.0-1.0); NEUTROPHILS % (AUTO) 52.9 %; PLT - PLATELET COUNT 300 10^3/uL (130-450); RED BLOOD COUNT 4.41 10^6/uL (4.20-5.40); RED CELL DISTRIBUTION WIDTH 11.6 % (12.0-15.0); WHITE BLOOD COUNT 7.6 x10^3/uL (4.8-10.8)
--- OUTSIDE RECORDS SUMMARY | 2022-12-06 11:42 | EXTERNAL MEDICAL SUMMARY RPT | Continuity of Care Document ---
Author Name Unknown Address [address] [place] [address] Phone Organization [facility] Address [address] [place] [address] Phone Care Team Providers Care Networking Administrator Name Role Phone Unavailable Unavailable Unavailable Chad [...]
--- NOTE | 2022-12-06 11:54 | XRAY Report ---
PROCEDURE: Chest 1 View X-Ray INDICATIONS: Chest Pain TECHNIQUE: One view of the chest was acquired. COMPARISON: None. FINDINGS: Surgical changes and devices: None. Lungs and pleura: No pleural effusions or pneumothorax. Lungs are clear. Mediastinum: Mediastinal contours appear normal. Heart size is normal. Bones and chest wall: No suspicious bony lesions. Overlying soft tissues appear unremarkable. IMPRESSION: No acute cardiopulmonary process. Reviewed by: Hua Osborne MD on 12/06/2022 11:53 AM PDT Approved by: Hua Osborne MD on 12/06/2022 11:53 AM PDT Station ID: [id number]
[2022-12-06 11:57] LABS: ALBUMIN/GLOBULIN RATIO 1.1 (1.0-2.2); BILIRUBIN,TOTAL 0.5 mg/dL (0.2-1.0); CALCIUM 9.3 mg/dL (8.5-10.3); CREATININE 0.6 mg/dL (0.4-1.0); TOTAL PROTEIN 7.8 g/dL (6.7-8.2)
[2022-12-06 12:08] LABS: HCG,QUALITATIVE BLOOD NEGATIVE
[2022-12-06 12:18] VITALS: BP 139/97
[2022-12-06] MEDS ORDERED: ACETAMINOPHEN 325 MG TABLET PO STA (12:18)
== END 2022-12-06 12:59 | disposition home or self-care (01) ==
LOC: ED 10:57
DX: R07.89 Other chest pain (principal)
CPT/HCPCS: 36415; 71045; 80053; 83690; 84484; 84703; 85025; 85379; 93005; 96374; 99284; A9270

== ENCOUNTER 2023-01-02 17:21 | Emergency (ER) | payer MEDICAID ==
[2023-01-02 17:44] VITALS: BP 125/81
--- NOTE | 2023-01-02 17:49 | ED Physician Documentation ---
History of Present Illness - Stated complaint Stated Complaint: LUMP ON LT UNDERARM - Additonal information Additional information: 22-year-old female presents emergency department for evaluation of 3 days swelling lumps under her left axilla. Was seen recently for similar on the right axilla and had incision and drainage completed. Patient's had no fevers. Her mom advocates that the patient seems to be developing Some areas of purulent blisters on both of her shoulders. Mom and patient are exceedingly anxious. They recently moved to [facility] and have been unable to establish with a primary care doctor due to the patient's insurance which is [employer]. 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 HEENT: None Psych: None Musculoskeletal: None Derm: None - Past Surgical History Past Surgical History: No - Present Medications Home Medications: Ambulatory Orders Medication Instructions Recorded Confirmed cephALEXin [Keflex] 500 mg PO Q6H #28 cap 11/30/22 Ondansetron Odt [Zofran] 4 mg TL Q6H PRN #10 tablet 12/06/22 Oxycodone HCl/Acetaminophen 1 each PO DAILY PRN #4 tablet 12/06/22 [Oxycodone-Acetaminophn 7.5-325] Doxycycline Hyclate 100 mg PO BID #14 cap 01/02/23 Fluconazole 150 mg PO ONCE #1 tablet 01/02/23 - Allergies Allergies/Adverse Reactions: Allergies Allergy/AdvReac Type Severity Reaction Status Date / Time hydrocodone Allergy Anaphylaxis Verified 12/06/22 11:04 ibuprofen AdvReac Unknown Verified 12/06/22 11:04 - Social History Does the pt smoke?: No Smoking Status: Never smoker - Immunizations Immunizations are current?: Yes - POLST Patient has POLST: No PD ED PE NORMAL - General General: Alert and oriented X 3, No acute distress - Neck Neck: Supple, no meningeal sign, No adenopathy - Respiratory Respiratory: Clear bilaterally - Derm Derm: Normal color, Warm and dry. No: Other (Left axilla with small area of mild induration though no erythema. No obvious fluctuance.) - Extremities Extremities: No deformity - Neuro Neuro: Alert and oriented X 3, director online marketing 2-12 intact Eye Opening: Spontaneous Motor: Obeys Commands Verbal: Oriented GCS Score: 15 Results - Vitals Vitals: Oxygen O2 Source Room air PD Medical Decision Making - ED course Complexity details: d/w patient ED course: 22-year-old female here with a apparent new infection in the last 3 days of her left axilla. Seen recently for similar in the right axilla. Given this history I am suspicious the patient is developing hidradenitis suppurativa. I discussed this finding with the patient and her mom. Patient will be started on doxycycline. I am making the recommendation to obtain PCP for referral to dermatology or general surgery for reevaluation of this. Did give mom the name and number of the local walk-in clinic. She [place] Return precautions discussed Departure - Departure Disposition: 01 Home, Self Care Clinical Impression: Hidradenitis suppurativa of left axilla Condition: Stable Record reviewed to determine appropriate education?: Yes Instructions: Hidradenitis Suppurativa, ED Axillary Gland Infec Abx Prescriptions: Doxycycline Hyclate 100 mg PO BID #14 cap Fluconazole 150 mg PO ONCE #1 tablet Comments: As discussed I suspect that what Shireen is developing in both of her axilla region is a condition called hidradenitis suppurativa. This is an infection of the sweat glands that tends to be recurrent. In the long-term she will need referral to either dermatology or general surgery for evaluation of this is sometimes it can require removal of the glands to reduce recurrence. At this time I would like her to stop using any deodorants. I have started her on doxycycline she will take twice daily for the next week. When on doxycycline its important to avoid sun exposure so if you are outside wear a large hat and long sleeves. You can get a rash if exposing yourself to sun while on the antibiotic. A prescription for single dose of fluconazole has also been sent to the pharmacy that can be used should you develop signs of a yeast infection after using the doxycycline. I do recommend that you buy a bottle of chlorhexidine body wash [id number] at any pharmacy. This is a pink soap. She should use this on her body every other day for 3 showers. This can help rhe prevent recurrent infections in the skin. Do not use it longer than for those 3 showers I can understand your frustration [place]-in clinic in [place] that may be able to make the appropriate referrals that you are requesting for MRI or to dermatology.
== END 2023-01-02 18:03 | disposition home or self-care (01) ==
LOC: ED 17:21
DX: L73.2 Hidradenitis suppurativa (principal)
CPT/HCPCS: 99281; 99283

== ENCOUNTER 2023-02-26 08:00 | Outpatient (CLI) | payer MEDICAID, OTHER | END 2023-02-26 08:15 | disposition home or self-care (01) | LOC: LAB.N 08:00 | PROVIDERS: ATTEND Physician Assistant Medical | DX: J02.9 Acute pharyngitis, unspecified (principal) | CPT/HCPCS: 87070 ==

== ENCOUNTER 2023-04-08 20:11 | Outpatient (CLI) | payer MEDICAID ==
--- NOTE | 2023-04-09 11:49 | XRAY Report ---
PROCEDURE: Foot 3 View RT INDICATIONS: CONTUSION OF RIGHT FOOT, INITIAL ENCOUNTER TECHNIQUE: 3 views of the foot were acquired. COMPARISON: None. FINDINGS: Bones: No fractures or dislocations. No suspicious bony lesions. Soft tissues: No suspicious soft tissue calcifications or masses. IMPRESSION: No visualized acute fracture or dislocation. However, occult injury cannot be excluded. Recommend lucien rt interval imaging follow-up in 7-10 days as clinically indicated for additional evaluation. Reviewed by: Any Coronado MD on 04/09/2023 11:48 AM PDT Approved by: Any Coronado MD on 04/09/2023 11:48 AM PDT Station ID: [id number]
== END 2023-04-08 20:12 | disposition home or self-care (01) ==
LOC: DI 20:11
PROVIDERS: ATTEND Family Medicine
DX: S90.31XA Contusion of right foot, initial encounter (principal)